=== PATIENT | female | born 1965 | race Caucasian/White ===

== ENCOUNTER 2016-09-12 20:40 | Emergency (ER) | payer BC ==
[~2016-09-12] VITALS: Ht 165.1 cm; Wt 54.4 kg
[2016-09-12 21:26] LABS: BASO # 0.1 x10^3/uL (0.0-0.2); BASO % 1 % (0-3); EOS % 5 % (0-3); HEMATOCRIT 37.6 % (36.0-47.0); HEMOGLOBIN 12.3 g/dL (12.0-15.5); LYMPH # 2.2 x10^3/uL (1.0-4.8); LYMPH % 41 % (24-48); MEAN CORPUSCULAR HEMOGLOBIN 29 pg (25-35); MEAN CORPUSCULAR HGB CONC 33 g/dL (31-37); MEAN CORPUSCULAR VOLUME 89 fL (79-100); MONO % 7 % (0-9); NEUT % 47 % (31-73); PLATELET COUNT 247 x10^3/uL (140-400); RED BLOOD COUNT 4.22 x10^6/uL (3.50-5.40); RED CELL DISTRIBUTION WIDTH 13.4 % (11.5-14.5); WHITE BLOOD COUNT 5.3 x10^3/uL (4.0-11.0)
[2016-09-12 21:27] LABS: BILIRUBIN,URINE NEGATIVE (NEG); GLUCOSE,URINE NEGATIVE (NEG); NITRITE,URINE NEGATIVE (NEG); PH,URINE 5.5; PROTEIN,URINE NEGATIVE (NEG-TRACE); UROBILINOGEN,URINE 0.2 mg/dL (0.2 mg/dL)
[2016-09-12] MEDS ORDERED: ONDANSETRON PF 4 MG/2 ML VIAL. IV ONE (21:30)
[2016-09-12] MEDS: KETOROLAC 15 MG/ML VIAL. IV ONE ×2 (21:30→22:16)
[2016-09-12] MEDS ORDERED: IV NORMAL SALINE 1000ML BAG 1,000 ML IV ONE (21:30)
[2016-09-12 21:34] LABS: CALCIUM 8.7 mg/dL (8.5-10.1); CREATININE 0.7 mg/dL (0.6-1.0); GFR 88.9; POTASSIUM 3.7 mmol/L (3.5-5.1)
[2016-09-12 21:40] LABS: ALBUMIN 3.7 g/dL (3.4-5.0); ALBUMIN/GLOBULIN RATIO 1.1 (1.0-1.7); TOTAL BILIRUBIN 0.2 mg/dL (0.2-1.0); TOTAL PROTEIN 7.2 g/dL (6.4-8.2)
[2016-09-12 21:41] LABS: BACTERIA,URINE FEW /HPF (0-FEW); SQUAMOUS EPITHELIAL CELL,UR MOD /LPF
--- NOTE | 2016-09-12 22:49 | RAD ---
History: Left flank pain, history of renal stones. Comparison: None. Technique: CT of the abdomen and pelvis was performed without intravenous or oral contrast. Exposure: One or more of the following individualized dose reduction techniques were utilized for this examination: 1. Automated exposure control 2. Adjustment of the mA and/or kV according to patient size 3. Use of iterative reconstruction technique Findings: Evaluation of solid organs of the abdomen and pelvis is limited by lack of intravenous contrast. Evaluation of enteric structures may be limited by lack of oral contrast. Images of the lower chest demonstrate multiple small pulmonary nodules measuring up to 5 mm. Liver, spleen, pancreas, and bilateral adrenal glands are unremarkable. Gallbladder is absent. Post surgical changes of gastric bypass are seen. No bowel obstruction or inflammation is identified. Mild calcified aortic atherosclerosis is seen. Appendix is without evidence of inflammation. Colonic diverticulosis is noted, but no diverticulitis is appreciated. The uterus absent. Urinary bladder is unremarkable. Both ureters are free of stone or obstruction. Right kidney is free of stone or obstruction. Left kidney demonstrates 2 nonobstructing nephroliths each measuring 1 mm. Laminectomy, discectomy, and posterior spinal fusion changes are seen at L5-S1. Impression: 1. No acute abnormality identified in the abdomen or pelvis. 2. Nonobstructive left nephrolithiasis. 3. Multiple small pulmonary nodules measuring up to 5 mm. Consider follow-up chest CT without contrast in 12 months. Electronically signed by: Balaji Mercado MD (09/12/2016 10:46 PM)
[2016-09-12 23:13] VITALS: BP 169/80
[2016-09-12] MEDS ORDERED: LIDO:MAALOX:DONNATAL 1:1:1 15 ML SINGLE DOSE SWSW ONE (23:15)
[2016-09-12] MEDS ORDERED: SMZ/TMP 800/160MG TABLET. PO ONE (23:15)
[2016-09-12] MEDS ORDERED: MORPHINE SULFATE 2 MG/ML DISP.SYRIN. IV ONE (23:15)
[2016-09-12] MEDS ORDERED: SULF1TAB24 PO (23:28)
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
== END 2016-09-12 23:47 | disposition home or self-care (01) ==
LOC: ER 20:40
DX: N39.0 Urinary tract infection, site not specified (principal); Z87.442 Personal history of urinary calculi; I10 Essential (primary) hypertension; E11.9 Type 2 diabetes mellitus without complications; Z90.49 Acquired absence of other specified parts of digestive tract; Z90.710 Acquired absence of both cervix and uterus; Z88.0 Allergy status to penicillin; Z88.8 Allergy status to other drugs, medicaments and biological substances
CPT/HCPCS: 36415; 74176; 80053; 81001; 83690; 85027; 87086; 96361; 96374; 96375; 99285; J1885; J2270; J2405; J7030

== ENCOUNTER 2016-09-25 10:57 | Emergency (ER) | payer SELFPAY ==
[~2016-09-25] VITALS: Ht 165.1 cm; Wt 54.4 kg
[~2016-09-25 10:57] MED LIST: SULF1TAB24 PO
[2016-09-25] MEDS ORDERED: IV NORMAL SALINE 1000ML BAG 1,000 ML IV SCH (11:15)
[2016-09-25] MEDS ORDERED: ONDANSETRON PF 4 MG/2 ML VIAL. IV ONE (11:15)
[2016-09-25] MEDS ORDERED: HYDROmorphone 2 MG/ML VIAL IV/SQ PRN (11:15)
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
[2016-09-25 13:00] VITALS: BP 128/78
[2016-09-25] MEDS ORDERED: oxyCODONE/APAP 10/325 1 TAB TABLET PO ONE (13:00)
== END 2016-09-25 13:28 | disposition home or self-care (01) ==
LOC: ER 10:57
DX: S16.1XXA Strain of muscle, fascia and tendon at neck level, initial encounter (principal); S39.012A Strain of muscle, fascia and tendon of lower back, initial encounter; G89.29 Other chronic pain; I10 Essential (primary) hypertension; E11.9 Type 2 diabetes mellitus without complications; Z87.442 Personal history of urinary calculi; Z88.8 Allergy status to other drugs, medicaments and biological substances; Z88.0 Allergy status to penicillin; V49.49XA Driver injured in collision with other motor vehicles in traffic accident, initial encounter; Y93.89 Activity, other specified; Y92.415 Exit ramp or entrance ramp of street or highway as the place of occurrence of the external cause; Y99.8 Other external cause status
CPT/HCPCS: 72125; 72128; 96361; 96374; 96375; 99285; J1170; J2405; J7030

== ENCOUNTER 2017-04-25 18:27 | Emergency (ER) | payer OTHER ==
[2017-04-25] MEDS: ACETAMINOPHEN 500 MG TABLET PO ×2 (19:35)
[2017-04-25 20:26] LABS: BILIRUBIN,URINE NEGATIVE (NEG); CLARITY,URINE CLEAR; COLOR,URINE YELLOW; GLUCOSE,URINE NEGATIVE (NEG); NITRITE,URINE POSITIVE (NEG); PH,URINE 5.5; PROTEIN,URINE NEGATIVE (NEG-TRACE); UROBILINOGEN,URINE 0.2 mg/dL (0.2 mg/dL)
[2017-04-25] MEDS: IV NORMAL SALINE 1000ML BAG 1,000 ML IV ×2 (20:31)
[2017-04-25 20:37] LABS: BACTERIA,URINE MOD /HPF (0-FEW); RBC,URINE 0 /HPF (0-2); SQUAMOUS EPITHELIAL CELL,UR OCC /LPF
[2017-04-25 20:41] LABS: ADD MAN DIFF? NO
[2017-04-25 20:43] LABS: BASO % 1 % (0-3); EOS # 0.3 x10^3/uL (0.0-0.7); EOS % 5 % (0-3); HEMATOCRIT 32.7 % (36.0-47.0); HEMOGLOBIN 10.7 g/dL (12.0-15.5); LYMPH # 1.6 x10^3/uL (1.0-4.8); LYMPH % 30 % (24-48); MEAN CORPUSCULAR HEMOGLOBIN 29 pg (25-35); MEAN CORPUSCULAR HGB CONC 33 g/dL (31-37); MEAN CORPUSCULAR VOLUME 88 fL (79-100); MONO # 0.3 x10^3/uL (0.0-1.1); MONO % 5 % (0-9); NEUT # 3.1 x10^3uL (1.8-7.7); NEUT % 59 % (31-73); PLATELET COUNT 264 x10^3/uL (140-400); RED CELL DISTRIBUTION WIDTH 14.3 % (11.5-14.5); WHITE BLOOD COUNT 5.3 x10^3/uL (4.0-11.0)
[2017-04-25 20:53] LABS: ANION GAP 8 (6-14); BLOOD UREA NITROGEN 7 mg/dL (7-20); BUN/CREATININE RATIO 12 (6-20); CALCIUM 8.3 mg/dL (8.5-10.1); CARBON DIOXIDE 31 mmol/L (21-32); CHLORIDE 104 mmol/L (98-107); CREATININE 0.6 mg/dL (0.6-1.0); GFR 105.8; GLUCOSE 89 mg/dL (70-99); POTASSIUM 4.2 mmol/L (3.5-5.1); SODIUM 143 mmol/L (136-145)
[2017-04-25 20:59] LABS: ALBUMIN 3.1 g/dL (3.4-5.0); ALBUMIN/GLOBULIN RATIO 0.9 (1.0-1.7); ALK PHOS 109 U/L (46-116); ALT (SGPT) 81 U/L (14-59); AST (SGOT) 55 U/L (15-37); TOTAL BILIRUBIN 0.1 mg/dL (0.2-1.0); TOTAL PROTEIN 6.5 g/dL (6.4-8.2)
== END 2017-04-25 22:00 | disposition home or self-care (01) ==
LOC: ER 18:27
DX: N39.0 Urinary tract infection, site not specified (principal); G89.29 Other chronic pain; I10 Essential (primary) hypertension; R53.81 Other malaise; E11.9 Type 2 diabetes mellitus without complications; Z87.442 Personal history of urinary calculi; Z90.710 Acquired absence of both cervix and uterus; Z90.49 Acquired absence of other specified parts of digestive tract; Z88.0 Allergy status to penicillin; Z88.8 Allergy status to other drugs, medicaments and biological substances; Z88.6 Allergy status to analgesic agent
CPT/HCPCS: 36415; 70450; 71045; 80053; 81001; 85025; 93005; 96361; 96365; 99285-25; J0690; J7030

== ENCOUNTER 2018-04-16 16:10 | Emergency (ER) | payer OTHER ==
[~2018-04-16] VITALS: Ht 165.1 cm; Wt 47.6 kg
[~2018-04-16 16:10] MED LIST changes: +NITR100C62 PO
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
[2018-04-16 16:45] LABS: BASO % 1 % (0-3); EOS % 1 % (0-3); HEMATOCRIT 35.1 % (36.0-47.0); HEMOGLOBIN 11.6 g/dL (12.0-15.5); LYMPH # 1.2 x10^3/uL (1.0-4.8); LYMPH % 21 % (24-48); MEAN CORPUSCULAR HEMOGLOBIN 29 pg (25-35); MEAN CORPUSCULAR HGB CONC 33 g/dL (31-37); MEAN CORPUSCULAR VOLUME 88 fL (79-100); MONO # 0.3 x10^3/uL (0.0-1.1); MONO % 4 % (0-9); NEUT # 4.3 x10^3uL (1.8-7.7); NEUT % 74 % (31-73); PLATELET COUNT 305 x10^3/uL (140-400); RED CELL DISTRIBUTION WIDTH 14.7 % (11.5-14.5); WHITE BLOOD COUNT 5.9 x10^3/uL (4.0-11.0)
[2018-04-16] MEDS ORDERED: fentaNYL PF VIAL 100 MCG/2 ML VIAL IV ONE ×2 (16:45→18:00)
[2018-04-16 16:54] LABS: CALCIUM 8.5 mg/dL (8.5-10.1); CREATININE 0.6 mg/dL (0.6-1.0); GFR 105.4; POTASSIUM 4.3 mmol/L (3.5-5.1)
[2018-04-16] MEDS ORDERED: IV NORMAL SALINE 1000ML BAG 1,000 ML IV ONE (17:15)
[2018-04-16 17:45] VITALS: BP 137/77
[2018-04-16] MEDS ORDERED: FAMOTIDINE 20 MG/2 ML VIAL IVP ONE (17:45)
[2018-04-16] MEDS ORDERED: LIDO:MAALOX 1:1 20 ML SINGLE DOSE. SWSW ONE ×2 (17:45)
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
--- NOTE | 2018-04-16 18:45 | RAD ---
CT of the right hip without contrast Indication: Right hip, pain out of proportion. Fall
PREVIOUS Exposure: One or more of the following individualized dose reduction techniques were utilized for this examination: 1. Automated exposure control 2. Adjustment of the mA and/or kV according to patient size 3. Use of iterative reconstruction technique. Comparison: None are available. Contrast: None No evidence of an acute fracture. No evidence of dislocation. Joint space appears intact. No aggressive bone destruction is identified. There is moderate retained stool in the visualized colon and rectum. Degenerative and postsurgical changes of the partially seen lower spine. Urinary bladder is mildly distended. IMPRESSION: No evidence of an acute fracture at the right hip. Follow-up with MRI of the right hip could be of benefit as it is more sensitive for detection of hip fracture than radiographs or CT scan. Electronically signed by: Balaji Merino MD (04/16/2018 6:40 PM) [facility]
[2018-04-16] MEDS ORDERED: OXYC1TAB15 PO (18:57)
== END 2018-04-16 19:08 | disposition home or self-care (01) ==
LOC: ER 16:10
DX: M25.551 Pain in right hip (principal); M79.644 Pain in right finger(s); G89.11 Acute pain due to trauma; E86.0 Dehydration; K21.9 Gastro-esophageal reflux disease without esophagitis; G89.29 Other chronic pain; Z90.710 Acquired absence of both cervix and uterus; Z90.89 Acquired absence of other organs; Z90.49 Acquired absence of other specified parts of digestive tract; Z87.442 Personal history of urinary calculi; Z98.890 Other specified postprocedural states; Z88.0 Allergy status to penicillin; Z88.5 Allergy status to narcotic agent; Z88.1 Allergy status to other antibiotic agents; Z88.6 Allergy status to analgesic agent; Z88.8 Allergy status to other drugs, medicaments and biological substances; W17.89XA Other fall from one level to another, initial encounter; Y93.89 Activity, other specified; Y92.89 Other specified places as the place of occurrence of the external cause; Y99.8 Other external cause status
CPT/HCPCS: 36415; 73130; 73502; 73700; 80048; 84443; 85025; 96361; 96374; 96375; 96376; 99284; J3010; J3490; J7030

== ENCOUNTER → 2018-07-06 | Outpatient (CLI) | payer OTHER ==
[~2018-07-06] MED LIST changes: +OXYC1TAB15 PO
--- NOTE | 2018-07-10 12:56 | EEG ---
DATE OF SERVICE: 07/06/2018 ELECTROENCEPHALOGRAM REPORT EEG NUMBER: [id number]. OBJECTIVE: The patient is a 53-year-old female with post-concussion syndrome and episodes of unresponsiveness. DESCRIPTION: This is a digital study. Electrodes are placed according to international 10-20 system. Bipolar and referential montages are available. Activation procedures typically include hyperventilation and intermittent photic stimulation. INTERPRETATION: The waking background consists of 9-10 Hz, 50-100 microvolt activity, symmetrically distributed over the parieto-occipital regions and reactive to eye opening. Stage 1 sleep is achieved with normal electroencephalogram patterns. Hyperventilation and intermittent photic stimulation are noncontributory. All computer-identified abnormality are reviewed and none are abnormal. IMPRESSION: This electroencephalogram with the patient awake and asleep is within normal limits. There is no focal, paroxysmal or epileptiform activity. Thank you for letting us help with the patient's care. OBED LUGO MD DR: SHREYAS/shanika JOB#: [id number] / [id number] OBED Arguelles MD
== END | disposition home or self-care (01) ==
LOC: RT 12:44
PROVIDERS: ATTEND Psychiatry & Neurology Neurology with Special Qualifications in Child Neurology
DX: F07.81 Postconcussional syndrome (principal); R06.4 Hyperventilation; G44.329 Chronic post-traumatic headache, not intractable
CPT/HCPCS: 95816

== ENCOUNTER → 2018-07-20 | Outpatient (CLI) | payer OTHER ==
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
== END | disposition home or self-care (01) ==
LOC: KCIC MRI 12:28
PROVIDERS: ATTEND Psychiatry & Neurology Neurology with Special Qualifications in Child Neurology
DX: Z03.89 Encounter for observation for other suspected diseases and conditions ruled out (principal); F07.81 Postconcussional syndrome; G44.329 Chronic post-traumatic headache, not intractable; J34.89 Other specified disorders of nose and nasal sinuses
CPT/HCPCS: 70030; 70551

== ENCOUNTER 2018-08-13 12:26 | Emergency (ER) | payer OTHER ==
[~2018-08-13] VITALS: Ht 175.3 cm; Wt 47.6 kg
[2018-08-13] MEDS ORDERED: OXYMETAZOLINE 0.05% NASAL SPRAY 30ML BOTTLE. NS STA (13:10)
[2018-08-13] MEDS ORDERED: LISINOPRIL 10 MG TABLET PO ONE (13:15)
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
[2018-08-13 14:10] LABS: BASO % 1 % (0-3); EOS % 0 % (0-3); HEMATOCRIT 37.1 % (36.0-47.0); HEMOGLOBIN 12.1 g/dL (12.0-15.5); LYMPH # 1.8 x10^3/uL (1.0-4.8); LYMPH % 24 % (24-48); MEAN CORPUSCULAR HEMOGLOBIN 27 pg (25-35); MEAN CORPUSCULAR HGB CONC 33 g/dL (31-37); MEAN CORPUSCULAR VOLUME 84 fL (79-100); MONO # 0.4 x10^3/uL (0.0-1.1); MONO % 5 % (0-9); NEUT # 5.5 x10^3uL (1.8-7.7); NEUT % 71 % (31-73); PLATELET COUNT 388 x10^3/uL (140-400); RED BLOOD COUNT 4.43 x10^6/uL (3.50-5.40); WHITE BLOOD COUNT 7.8 x10^3/uL (4.0-11.0)
[2018-08-13 14:20] LABS: CALCIUM 8.8 mg/dL (8.5-10.1); CREATININE 0.8 mg/dL (0.6-1.0); GFR 75.6; POTASSIUM 3.1 mmol/L (3.5-5.1)
[2018-08-13 14:23] LABS: PROTHROMBIN TIME PATIENT 12.7 SEC (11.7-14.0)
[2018-08-13 14:26] LABS: ALBUMIN 3.9 g/dL (3.4-5.0); ALBUMIN/GLOBULIN RATIO 1.2 (1.0-1.7); TOTAL BILIRUBIN 0.4 mg/dL (0.2-1.0); TOTAL PROTEIN 7.2 g/dL (6.4-8.2)
[2018-08-13] MEDS ORDERED: cloNIDine HCL 0.1 MG TABLET PO ONE (14:30)
[2018-08-13] MEDS ORDERED: POTASSIUM CHLORIDE 20 MEQ TABLET.ER. PO ONE (14:30)
[2018-08-13] MEDS ORDERED: BUTALB/APAP/CAFEIN 50/325/40MG TABLET. PO STA (15:07)
[2018-08-13 15:55] VITALS: BP 137/86
== END 2018-08-13 16:01 | disposition home or self-care (01) ==
LOC: ER 12:26
DX: R04.0 Epistaxis (principal); R42 Dizziness and giddiness; R51 Headache; K21.9 Gastro-esophageal reflux disease without esophagitis; G89.29 Other chronic pain; Z88.0 Allergy status to penicillin; Z88.1 Allergy status to other antibiotic agents; Z88.5 Allergy status to narcotic agent; Z88.6 Allergy status to analgesic agent; Z88.8 Allergy status to other drugs, medicaments and biological substances
CPT/HCPCS: 36415; 80053; 85025; 85610; 85730; 99284

== ENCOUNTER → 2019-08-20 | Outpatient (CLI) | payer OTHER ==
--- NOTE | 2019-08-23 11:48 | SLEEP ---
DATE OF STUDY: 08/20/2019 OBJECTIVE: The patient is a 54-year-old female with excessive somnolence, concern for narcolepsy. INTERPRETATION: Sleep architecture is characterized by sleep efficiency of 61% across the 7 hours of recording time. There is an absence of slow-wave sleep and there is also no REM sleep. Sleep onset latency is 0.5 minutes. Respiratory monitoring shows no events. The minimum oxygen saturation is 91%. There were only minimal amounts of periodic limb movements of sleep and no cardiac arrhythmias are observed. A large amount of fast activity is seen in the electroencephalogram recording consistent with medication effect. IMPRESSION: Normal polysomnogram showing no evidence of sleep disordered breathing. Please also see multiple sleep latency test report. Thank you for letting us help with the patient's care. OBED LUGO MD DR: SHREYAS/shanika JOB#: [id number] / [id number]
--- NOTE | 2019-08-23 12:22 | SLEEP ---
DATE OF STUDY: 08/21/2019 MULTIPLE SLEEP LATENCY TEST REPORT OBJECTIVE: The patient is a 54-year-old female with excessive somnolence. The previous night's polysomnogram was normal. INTERPRETATION: Sleep latency for nap 1 was 0 minutes; nap 2, 0 minutes; nap 3, 0.5 minutes; nap 4, 1 minute for a mean sleep latency of 0.4 events per hour of sleep. Nap 5 was not done. The patient did not achieve REM sleep. NOTE: The technician's helper noted bizarre behavior. At 8:00 a.m., he documents patient was slumped over her breakfast to sleep, but was oriented x 3. Nursing car supervisor came to assess the patient at 8:20, blood pressure was 102/51, pulse 69. She had just taken blood pressure medication. At 9:10, the technician's helper explained to the patient not to take any of her pain medications because her blood pressure is already low enough. At 10:15, the patient was confused, kept turning off the lights in the room and between naps, was asked not to 3 times. The patient also became very angry. Each time, the technician's helper asked to follow commands. At 11:30, he went into the room and found the patient trying to pluck her EEG amplifier electrodes into the electrical outlet. He asked the patient not to do that. The patient was alert and oriented to person, place and time, but appeared confused. At 12:30, she pulled off the electrodes and put head box in her suitcase. The patient was confused. At 1330, the patient was talking on the phone with son telling him that the technician's helper was aggressive. The technician's helper explained that he was just trying to keep her safe and not being aggressive. The patient used very aggressive language to describe the situation in the lab where she thought technician's helper was yelling at her and that was not true at tall. Nursing car supervisor was in the room during the event in question. At 1430, the patient was escorted by another technician's helper to the Emergency Department waiting room to await for her ride. The technician's helper did not feel comfortable escorting the patient. He just wanted to diffuse the situation. At 1420, the technician's helper called the nursing car supervisor and explained the situation of not wanting to be alone in the lab with the patient and no witnesses. IMPRESSION: Multiple sleep latency test shows excessive daytime somnolence, but there is no sleep onset rapid eye movement sleep, so one cannot make a diagnosis of narcolepsy on this test. Given the large amount of sedation artifact on the EEG on the previous night study, one wonders if this somnolence is related to her multiple psychiatric and narcotic medications. RECOMMENDATIONS: The patient will follow up in my office as scheduled. Thank you for letting us help with the patient's care. OBED LUGO MD DR: SHREYAS/shanika JOB#: [id number] / [id number]
== END | disposition home or self-care (01) ==
LOC: SLPLAB 19:00
PROVIDERS: ATTEND Psychiatry & Neurology Neurology with Special Qualifications in Child Neurology
DX: G47.411 Narcolepsy with cataplexy (principal)
CPT/HCPCS: 95805; 95810

== ENCOUNTER 2021-05-13 15:29 | Emergency (ER) | payer OTHER ==
[~2021-05-13] VITALS: Ht 165.1 cm; Wt 59.0 kg
[2021-05-13] MEDS ORDERED: levETIRAcetam 1,000mg PREMIX 100 ML IV ONE (15:45)
[2021-05-13 16:10] LABS: BASO # 0.1 x10^3/uL (0.0-0.2); BASO % 1 % (0-3); EOS % 0 % (0-3); HEMATOCRIT 38.1 % (36.0-47.0); HEMOGLOBIN 12.3 g/dL (12.0-15.5); LYMPH # 2.1 x10^3/uL (1.0-4.8); LYMPH % 19 % (24-48); MEAN CORPUSCULAR HEMOGLOBIN 28 pg (25-35); MEAN CORPUSCULAR HGB CONC 32 g/dL (31-37); MEAN CORPUSCULAR VOLUME 87 fL (79-100); MONO # 0.6 x10^3/uL (0.0-1.1); MONO % 6 % (0-9); NEUT # 8.5 x10^3/uL (1.8-7.7); NEUT % 75 % (31-73); PLATELET COUNT 464 x10^3/uL (140-400); RED BLOOD COUNT 4.39 x10^6/uL (3.50-5.40); RED CELL DISTRIBUTION WIDTH 13.5 % (11.5-14.5); WHITE BLOOD COUNT 11.4 x10^3/uL (4.0-11.0)
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
[2021-05-13 16:36] LABS: ALBUMIN 3.8 g/dL (3.4-5.0); ALBUMIN/GLOBULIN RATIO 0.9 (1.0-1.7); CALCIUM 8.9 mg/dL (8.5-10.1); CREATININE 1.4 mg/dL (0.6-1.0); GFR 39.2; TOTAL BILIRUBIN 0.4 mg/dL (0.2-1.0); TOTAL PROTEIN 7.9 g/dL (6.4-8.2)
[2021-05-13 16:43] LABS: POTASSIUM 2.9 mmol/L (3.5-5.1)
[2021-05-13 16:50] LABS: BILIRUBIN,URINE SMALL (NEG); CLARITY,URINE CLEAR; NITRITE,URINE NEGATIVE (NEG); PH,URINE 5.5 (<5.0-8.0); PROTEIN,URINE 30 mg/dL (NEG-TRACE); UROBILINOGEN,URINE 0.2 mg/dL (0.2 mg/dL)
[2021-05-13 16:54] LABS: COLOR,URINE YELLOW
[2021-05-13 16:55] LABS: BARBITURATES NEG (NEG); BENZODIAZEPINES NEG (NEG); CANNABINOIDS NEG (NEG); COCAINE NEG (NEG); HYALINE CASTS, URINE MANY /HPF; METHADONE NEG (NEG); OPIATES NEG (NEG); PHENCYCLIDINE NEG (NEG)
[2021-05-13 16:57] LABS: AMORPHOUS SEDIMENT,UR PRESENT /HPF; AMPHETAMINE/METHAMPHETAMINE NEG (NEG); BACTERIA,URINE 0 /HPF (0-FEW); RBC,URINE 0 /HPF (0-2)
[2021-05-13] MEDS ORDERED: POTASSIUM CHLORIDE 20 MEQ TABLET.ER. PO ONE (17:00)
[2021-05-13 17:22] VITALS: BP 144/69
== END 2021-05-13 17:45 | disposition home or self-care (01) ==
LOC: ER 15:29
DX: R56.9 Unspecified convulsions (principal); K21.9 Gastro-esophageal reflux disease without esophagitis; G89.29 Other chronic pain; Z90.89 Acquired absence of other organs; Z90.49 Acquired absence of other specified parts of digestive tract; Z90.710 Acquired absence of both cervix and uterus; Z88.0 Allergy status to penicillin; Z88.5 Allergy status to narcotic agent; Z88.1 Allergy status to other antibiotic agents; Z88.8 Allergy status to other drugs, medicaments and biological substances
CPT/HCPCS: 36415; 80053; 80307; 81001; 83605; 85025; 99284-25